=== PATIENT | female | born 1985 | race African-American/Black ===

== ENCOUNTER 2018-06-25 14:17 | Emergency (ER) | END 2018-06-25 20:26 | disposition home or self-care (01) ==

== ENCOUNTER 2018-09-26 18:49 | Emergency (ER) | END 2018-09-26 20:50 | disposition home or self-care (01) ==

== ENCOUNTER 2019-03-19 05:21 | Emergency (ER) | payer OTHER ==
[~2019-03-19] VITALS: Ht 165.1 cm; Wt 131.5 kg
[2019-03-19 05:25] VITALS: Ht 165.1 cm; Wt 131.5 kg
[2019-03-19] MEDS ORDERED: SOD CHLORIDE 0.9% 1,000 ML IV STA (06:01)
[2019-03-19] MEDS ORDERED: LOSA1TAB25 PO (06:14)
[2019-03-19] MEDS ORDERED: FER325 PO (06:14)
[2019-03-19] MEDS ORDERED: GLYBURIDE-METFORMIN PO (06:14)
[2019-03-19] MEDS ORDERED: ASCO500C7 PO (06:14)
--- NOTE | 2019-03-19 07:34 | ERD ---
ER Documentation Chief Complaint Chief Complaint palpitations & midsternal pains x 1day HPI This is a very pleasant 33-year-old female with a history of type 2 diabetes mellitus and hypertension who presents to the emergency department complaining of palpitations and mid substernal chest pain for 1 day but she complains is a sharp shooting pain. She denies any chest pressure. She has no associated symptoms of nausea vomiting. The patient does indicate she is been having intermittent shortness of breath in association with the palpitations. The chest pain does not radiate to the neck arm back or jaw. She states that she is been experiencing intermittent palpitations that will last for roughly 1 hour and then spontaneously resolved resolved. She denies any swelling of her lower extremities. She denies a headache. She denies any changes in medications. She gets treated at [facility] recently had ancillary blood work and thyroid panel testing which was found to be normal. She does not smoke tobacco. She has no history of coronary artery disease in first-degree relatives. ROS All systems reviewed and are negative except as per history of present illness. Medications Home Meds Reported Medications Ascorbic Acid* (Vitamin C*) 500 Mg Capsule.sa, 500 MG PO TID, CAP 03/19/19 Ferrous Sulfate* (Ferrous Sulfate*) 325 Mg Tabec, 325 MG PO TID, TAB 03/19/19 [Glyburide-Metformin] 5-500 TAB No Conflict Check, 1 TAB PO BID for 30 Days, #60 TAKE 1 TABLET BY MOUTH TWICE A DAY 03/19/19 Losartan-Hydrochlorothiazide (Losartan-HCTZ) 100-25 Mg Tab, 1 MG PO DAILY TAKE 1 TABLET BY MOUTH EVERY DAY 03/19/19 Allergies Allergies: Coded Allergies: No Known Allergy (Unverified , 03/19/19) PMhx/Soc History of Surgery: Yes (CSECTION x 4) Anesthesia Reaction: No Hx Neurological Disorder: No Hx Respiratory Disorders: No Hx Cardiac Disorders: Yes (HTN) Hx Psychiatric Problems: No Hx Miscellaneous Medical Probl: Yes (DM2, anemia) Hx Alcohol Use: No Hx Substance Use: No Hx Tobacco Use: No Smoking Status: Never smoker Physical Exam Vitals Vital Signs Date Temp Pulse Resp B/P (MAP) Pulse Ox O2 O2 Flow FiO2 Time Delivery Rate 03/19/19 113 13 142/92 98 Room Air 05:32 (109) 03/19/19 98.9 111 22 150/92 100 05:25 (111) Physical Exam Constitutional:Well-developed. Well-nourished. HEENT:Normocephalic. Atraumatic.Pupils were equal round reactive to light. Moist mucous membranes.No tonsillar exudates. Neck: No nuchal rigidity. No lymphadenopathy. No posterior cervical spine tenderness or step-offs. Respiratory: Not using accessory muscles of respiration.Lungs were clear to auscultation bilaterally. No rhonchi. No rales. No wheezing. Cardiovascular: Tachycardic.No murmurs. No rubs were appreciated.S1, S2 normal. Distal pulses are palpable 2+ bilaterally. Reproducible mid substernal chest tenderness with no crepitus no ecchymosis no flail chest GI: Abdomen was soft. Nontender. Non Distended. No pulsatile abdominal masses or bruits. No rebound. No guarding. Bowel sounds were present and normal. Muscle skeletal: Full range of motion of both the upper and lower extremities bilaterally.Normal muscle tone.No assymetrical calf tenderness or swelling. Skin: No petechia, no purpura. No lesions on the palms or the soles of the feet. No maculopapular rash. NEURO: Patient was alert, awake, orientated x3.No facial droop. Gait observed and normal with no ataxia.Speech had regular rate and rhythm. No focal neurological deficits. Result Diagram: 03/19/19 0639 03/19/19 0639 Results 24 hrs Laboratory Tests Test 03/19/19 06:37 03/19/19 06:39 Urine Color YELLOW Urine Clarity SLIGHTLY CLOUDY Urine pH 5.0 Urine Specific [place] 1.023 Urine Ketones 1+ mg/dL Urine Nitrite NEGATIVE mg/dL Urine Bilirubin NEGATIVE mg/dL Urine Urobilinogen NEGATIVE mg/dL Urine Leukocyte Esterase NEGATIVE Franki/ul Urine Microscopic RBC 1 /HPF Urine Microscopic WBC 5 /HPF Urine Squamous Epithelial Cells FEW /HPF Urine Mucus FEW /HPF Urine Hemoglobin NEGATIVE mg/dL Urine Glucose 2+ mg/dL Urine Total Protein 1+ mg/dl Urine Opiates Screen Negative Urine Barbiturates Negative Urine Amphetamines Screen Negative Urine Benzodiazepines Screen Negative Urine Cocaine Screen Negative Urine Cannabinoids Positive White Blood Count 9.2 10^3/ul Red Blood Count 4.95 10^6/ul Hemoglobin 11.0 g/dl Hematocrit 35.8 % Mean Corpuscular Volume 72.3 fl Mean Corpuscular Hemoglobin 22.2 pg Mean Corpuscular Hemoglobin Concent 30.7 g/dl Red Cell Distribution Width 18.2 % Platelet Count 425 10^3/UL Mean Platelet Volume 10.4 fl Immature Granulocytes % 0.300 % Neutrophils % 71.7 % Lymphocytes % 21.6 % Monocytes % 6.1 % Eosinophils % 0.1 % Basophils % 0.2 % Nucleated Red Blood Cells % 0.0 /100WBC Immature Granulocytes # 0.030 10^3/ul Neutrophils # 6.6 10^3/ul Lymphocytes # 2.0 10^3/ul Monocytes # 0.6 10^3/ul Eosinophils # 0.0 10^3/ul Basophils # 0.0 10^3/ul Nucleated Red Blood Cells # 0.0 10^3/ul Prothrombin Time 15.5 Sec Prothrombin Time Ratio 1.2 INR International Normalized Ratio 1.22 Activated Partial Thromboplast Time 29.5 Sec Sodium Level 139 mmol/L Potassium Level 3.6 mmol/L Chloride Level 102 mmol/L Carbon Dioxide Level 22 mmol/L Anion Gap 15 Blood Urea Nitrogen 13 mg/dl Creatinine 0.61 mg/dl Est Glomerular Filtrat Rate mL/min > 60 mL/min Glucose Level 195 mg/dl Calcium Level 9.7 mg/dl Total Bilirubin 0.6 mg/dl Direct Bilirubin 0.00 mg/dl Indirect Bilirubin 0.6 mg/dl Aspartate Amino Transf (AST/SGOT) 15 IU/L Alanine Aminotransferase (ALT/SGPT) 9 IU/L Alkaline Phosphatase 99 IU/L Creatine Kinase 41 IU/L Creatine Kinase Index 0.6 Creatinine Kinase MB (Mass) 0.23 ng/ml Troponin I < 0.012 ng/ml B-Type Natriuretic Peptide 22 PG/ML Total Protein 8.1 g/dl Albumin 4.4 g/dl Globulin 3.70 g/dl Albumin/Globulin Ratio 1.18 Lipase 91 U/L Ethyl Alcohol Level < 10.0 mg/dl Current Medications Medications Dose Sig/Cristal Start Time Status Last (Trade) Ordered Route PRN Stop Time Admin Dose Reason Admin Sodium 1,000 ml @ Q1H STAT 03/19/19 DC 03/19/19 Chloride 1,000 mls/hr IV 06:01 06:52 03/19/19 07:00 Ketorolac 30 mg ONCE STAT 03/19/19 DC 03/19/19 Tromethamine IV 08:48 09:01 (Toradol) 03/19/19 08:56 Sodium 100 ml @ ud STK-MED 03/19/19 DC Chloride ONCE .ROUTE 09:17 03/19/19 09:18 Iohexol 100 ml @ ud STK-MED 03/19/19 DC ONCE .ROUTE 09:17 03/19/19 09:18 Procedures/MDM The patient presented to the emergency department complaining of chest pain. My clinical evaluation and workup was to distinguish minor causes of chest pain from acute life threatening cardiopulmonary causes such as myocardial infarction, pulmonary embolism, aortic dissection, esophageal rupture, cardiac tamponade, The patient was placed on a library monitor, continuous pulse oximetry and IV access established by nursing staff. 12 Lead EKG tracing ordered and reviewed by myself showed: Sinus tachycardia 106 bpm and no arrhythmia. CA interval normal. QRS duration normal. No ST segment elevation No ST segment depression. No changes consistent with acute ischemia. The patient was also complaining of shortness of breath. My clinical suspicion was high for pulmonary embolism and therefore I did feel is necessary to obtain a CT scan the patient's chest which showed no evidence of a pulmonary embolism. The patient did receive Toradol. Her symptoms improved. The patients chest pain was reproduced by palpation and horizontal flexion of the arms. It was my clinical impression that the pain was a result of infla mmation of the skin and subcutaneous structures of the chest wall versus myocardial ischemia. I felt the patient had low-risk chest pain and could therefore be safely discharged with close follow-up. I spoke with the [facility] physician and they stated they will arrange for her to be seen by her primary care physician with a cardiology consult. Departure Diagnosis: Primary Impression: Palpitations Additional Impressions: Shortness of breath Pleurisy Condition: SANA Carlos MD March 19, 2019 07:17
[2019-03-19] MEDS ORDERED: KETOROLAC 30 MG INJ IV STA (08:48)
[2019-03-19] MEDS ORDERED: IOHEXOL 100 ML ONE (09:17)
[2019-03-19] MEDS ORDERED: SOD CHLORIDE 0.9% 100 ML ONE (09:17)
[2019-03-19 10:02] VITALS: BP 136/78; PULSE 83; RESP 18
== END 2019-03-19 10:30 | disposition home or self-care (01) ==
LOC: E/R 05:21
DX: R00.2 Palpitations (principal); I10 Essential (primary) hypertension; E11.9 Type 2 diabetes mellitus without complications; R06.02 Shortness of breath; R09.1 Pleurisy
CPT/HCPCS: 71045; 71275; 80053; 80307; 81001; 82550; 82553; 83690; 83880; 84484; 85025; 85610; 85730; J1885; J7030; Q9967; 96374